=== PATIENT | female | born 1955 | race Hispanic/Latino ===

== ENCOUNTER 2017-05-19 08:37 | Emergency (ER) | payer OTHER ==
[~2017-05-19] VITALS: Ht 162.6 cm; Wt 154.2 kg
[~2017-05-19 08:37] MED LIST: ASPIR 8181 MG PO; ATENOLOL50 MG PO; CARAFATE1 GM PO; EFFER-K 10 MEQ10 MEQ PO; FLEXERIL10 MG PO; FUROSEMIDE40 MG PO; HYDROCHLOROTHIA25 MG; IPRATROPIU0.2 MG/1 M INH; NEXIUM40 MG PO; ULTRAM50 MG PO; XOPENEX0.63 MG/3 INH
[2017-05-19 09:49] LABS: BASOPHILS % 0.7 % (0.0-1.0); EOSINOPHILS # (AUTO) 0.1 (0.0-0.4); EOSINOPHILS % 1.4 % (0.0-6.0); HEMATOCRIT 41.4 % (34.2-44.1); HEMOGLOBIN 13.1 g/dL (12.0-16.0); LYMPHOCYTES # (AUTO) 1.1 (1.0-3.2); LYMPHOCYTES % 25.7 % (18.0-39.1); MEAN CORPUSCULAR HGB CONC 31.6 g/dL (31-35); MEAN CORPUSCULAR VOLUME 85.4 fL (81-99); MONOCYTES # (AUTO) 0.3 (0.2-0.8); MONOCYTES % 7.5 % (4.4-11.3); NEUTROPHILS # (AUTO) 2.8 (2.1-6.9); NEUTROPHILS % 63.6 % (38.7-80.0); PLATELET COUNT 201 x10e3/uL (140-360); RED BLOOD COUNT 4.85 x10e6/uL (3.6-5.1)
--- NOTE | 2017-05-19 09:59 | Diagnostic Imaging Report ---
Examination: CT BRAIN WITHOUT CONTRAST History:Dizziness. Headache. Pain behind the right ear. Comparison studies:None Technique: Axial images were obtained from the skull base to the vertex. Coronal and sagittal images reconstructed from the axial data. Intravenous contrast: None Findings: Scalp: No abnormalities. Bones: No fractures, blastic or lytic lesions. Brain sulci: Appropriate for age. Ventricles: Normal in size and configuration. No hydrocephalus. Extra-axial space: No abnormalities. Parenchyma: No abnormal densities. No masses, hemorrhage, or acute or chronic cortical based vascular insults.. Sellar/suprasellar region: No abnormalities. Craniocervical junction: Patent foramen magnum. No Chiari one malformation. Incidental findings: None. Impression: No intracranial abnormalities. Signed by: Dr. Rhina Villarreal M.D. on 05/19/2017 9:55 AM
[2017-05-19 10:05] LABS: INR 1.03; PROTHROMBIN TIME 12.7 seconds (11.9-14.5)
[2017-05-19 10:06] LABS: PARTIAL THROMBOPLASTIN TIME 31.1 seconds (23.8-35.5)
[2017-05-19 10:13] LABS: BILIRUBIN,URINE NEGATIVE (NEGATIVE); KETONES,URINE NEGATIVE (NEGATIVE); LEUKOCYTE ESTERASE ,URINE NEGATIVE (NEGATIVE); NITRITE,URINE NEGATIVE (NEGATIVE); PROTEIN,URINE DIPSTICK NEGATIVE (NEGATIVE); URINE UROBILINOGEN 0.2 mg/dL (0.2 - 1)
[2017-05-19 10:15] LABS: ALANINE AMINOTRANSFERASE 17 IU/L (0-55); ALBUMIN 3.7 g/dL (3.5-5.0); ALBUMIN/GLOBULIN RATIO 1.1 (0.8-2.0); ALKALINE PHOSPHATASE 94 IU/L (40-150); ANION GAP 10.8 mmol/L (8-16); BLOOD UREA NITROGEN 15 mg/dL (7-26); BUN/CREATININE RATIO 21 (6-25); CALCIUM 8.9 mg/dL (8.4-10.2); CARBON DIOXIDE 26 mmol/L (22-29); CHLORIDE 108 mmol/L (98-107); CREATINE KINASE 69 IU/L (29-168); EST GLOMERULAR FILTRATION RATE > 60 ML/MIN (60-); GLUCOSE 148 mg/dL (74-118); POTASSIUM 3.8 mmol/L (3.5-5.1); SODIUM 141 mmol/L (136-145)
--- NOTE | 2017-05-19 10:17 | Diagnostic Imaging Report ---
PROCEDURE: CHEST SINGLE (PORTABLE) COMPARISON: None. INDICATIONS: HEADACHE, SHORTNESS OF BREATH FINDINGS: LUNGS: No consolidations or edema. PLEURA: No effusions or pneumothorax. HEART \T\ MEDIASTINUM: The heart is within normal size-limits. BONES \T\ SOFT TISSUES: No acute findings. CONCLUSION: No acute thoracic abnormality. Richard Amin D.O. Dictated by: Richard Amin D.O. on 05/19/2017 at 10:17 Electronically approved by: Richard Amin D.O. on 05/19/2017 at 10:17
[2017-05-19 10:22] LABS: CLARITY,URINE CLEAR (CLEAR); COLOR,URINE YELLOW (YELLOW)
[2017-05-19 10:33] LABS: BACTERIA,URINE FEW /HPF; EPITHELIAL CELLS,URINE MODERATE /LPF; TRANSITIONAL EPI CELLS,URINE RARE
[2017-05-19] MEDS ORDERED: CLONIDINE HCL 0.1 MG TAB PO ONE (11:45)
[2017-05-19 12:13] VITALS: BP 155/88
== END 2017-05-19 12:40 | disposition home or self-care (01) ==
LOC: ER 08:37
DX: G44.209 Tension-type headache, unspecified, not intractable (principal); I10 Essential (primary) hypertension; I51.9 Heart disease, unspecified; M79.7 Fibromyalgia
CPT/HCPCS: 36415; 70450; 71045; 80053; 81001; 82550; 82553; 84484; 85025; 85610; 85730; 93005; 99284

== ENCOUNTER → 2019-05-22 | Outpatient (CLI) | payer MEDICARE ==
[~2019-05-22] MED LIST changes: +AMLODIPINE BESYL5 MG PO; +JANUVIA100 MG PO; +MELOXICAM7.5 MG PO; +PHENTERMINE H37.5 M1 PO; +PROAIR HFA INH8.5 GM INH
--- NOTE | 2019-05-22 14:52 | Diagnostic Imaging Report ---
EXAM: BONE MINERAL DENSITY HISTORY: Screening COMPARISON: None DISCUSSION: Evaluation of the left hip and lumbar spine was performed utilizing DEXA Hologic bone densitometer. The study is technically adequate. The patient's fracture risk is compared to an age-matched control. The patient denies prior surgery/fracture of the spine, hips or forearm. Left hip femoral neck bone mineral density: 0.934 g/cm2, T-score is 0.5, Z-score is 2. Left hip total bone mineral density: 1.109 g/cm2, T-score is 1.1, Z-score is 2.3. Lumbar spine total bone mineral density: 1.107 gm/cm2, T-score is 0.5, Z-score is 2.4. Impression: Bone mineralization by WHO Classification is normal, the fracture risk is not increased. Signed by: Nader Corey MD on 05/22/2019 2:50 PM
== END ==
LOC: MAMMO 08:47
PROVIDERS: ATTEND Family Medicine
DX: Z12.31 Encounter for screening mammogram for malignant neoplasm of breast (principal); Z78.0 Asymptomatic menopausal state
CPT/HCPCS: 77067; 77080

== ENCOUNTER → 2020-01-02 | Outpatient (CLI) | payer MEDICARE ==
--- NOTE | 2020-01-04 16:03 | Diagnostic Imaging Report ---
#[id number] - USBRELIMRT ULTRASOUND OF THE RIGHT BREAST : 01/02/2020 Comparison is made to exams dated: 01/02/2020 mammogram and 05/22/2019 mammogram - [facility]. Color flow and real-time ultrasound were performed on the right breast. Mills scale images of the real-time examination were reviewed. No abnormalities were seen sonographically in the right breast. IMPRESSION: NEGATIVE There is no sonographic evidence of malignancy. A 1 year screening mammogram is recommended. ZULY giang/guerline:01/04/2020 09:36:20 Biology Intern: Nate Cadena [facility], [facility] letter sent: Normal Exam Ultrasound BI-RADS: 1 Negative
--- NOTE | 2020-01-04 16:03 | Diagnostic Imaging Report ---
#[id number] - MGDXRT #UNILATERAL RIGHT DIGITAL DIAGNOSTIC MAMMOGRAM WITH SPOT COMPRESSION: 01/02/2020 Comparison is made to exams dated: 05/22/2019 mammogram - [facility] and 05/08/2013 mammogram - [facility] There are scattered fibroglandular elements in the right breast. There is an 8 mm oval equal density mass with a circumscribed margin in the right breast at 11 o'clock anterior depth. This is decreased in size. No other significant masses or calcifications are seen in the breast. IMPRESSION: INCOMPLETE: NEEDS ADDITIONAL IMAGING EVALUATION The 8 mm oval equal density mass in the right breast is indeterminate but has decreased in size compared to the prior mammogram of 05/22/2019. Ultrasound evaluation will be performed during the same visit. A 1 year screening mammogram is recommended. ZULY RONDON M.D. kw/:01/04/2020 09:35:57 Supervisor [employer]: Noelle INIGUEZ(Tc)(M), [facility] Mammogram BI-RADS: 0 Indeterminate
== END ==
LOC: MAMMO 09:43
PROVIDERS: ATTEND Family Medicine
DX: R92.8 Other abnormal and inconclusive findings on diagnostic imaging of breast (principal)

== ENCOUNTER → 2020-01-16 | Outpatient (CLI) | payer MEDICARE ==
--- NOTE | 2020-01-16 15:33 | Diagnostic Imaging Report ---
CT of the abdomen and pelvis, without contrast, 01/16/2020. History: Left flank pain. Comparison: None available. Technique: Multidetector CT scanning of the abdomen and pelvis was performed from the level of the lung bases to the inferior pubic rami without intravenous or oral contrast. Coronal and sagittal multiplanar reformations were obtained. RADIATION DOSE: Total DLP: 738 mGy*cm Dose modulation, iterative reconstruction, and/or weight based adjustment of the mA/kV was utilized to reduce the radiation dose to as low as reasonably achievable. Discussion: Examination is limited without contrast. Lung bases: Calcified granulomata are present bilaterally. Linear scarring is present in the left lower lobe. Abdomen: The liver is enlarged measuring over 20 cm in length, with diffuse low-density. A 2.0 x 1.5 cm left adrenal nodule is present measuring 8 Hounsfield units in density. The biliary tree, spleen, pancreas, right adrenal, and kidneys are unremarkable. There is no evidence of nephrolithiasis, hydronephrosis, or ureteral dilatation. The gallbladder is absent. The abdominal aorta is within normal limits. A gastric lap band is present near the GE junction. There is no bowel dilatation. There is no evidence of adenopathy or free fluid. Pelvis: Evaluation is limited due to patient body habitus. The bladder is unremarkable. The uterus appears to be present, but this air is difficult to visualize due to streak artifact. There is no evidence of free fluid or adenopathy. Bones and soft tissues: Degenerative changes are present throughout the lumbar spine without evidence of lytic or sclerotic lesion. IMPRESSION: 1. Hepatomegaly with diffuse fatty infiltration of the liver. 2. No evidence of nephrolithiasis or hydronephrosis. 3. Low-density left adrenal nodule consistent with an adenoma. 4. Gastric lap band is present in the typical position. Signed by: Juanjo Horvath on 01/16/2020 3:30 PM
== END ==
LOC: CT 14:35
PROVIDERS: ATTEND Family Medicine
DX: R10.9 Unspecified abdominal pain (principal)
CPT/HCPCS: 74176

== ENCOUNTER → 2021-01-15 | Outpatient (CLI) | payer MEDICARE ==
[~2021-01-15] MED LIST changes: +REGADENOSON 0.4 MG/5 ML SYR IV ONE
== END ==
LOC: NM 09:08
PROVIDERS: ATTEND Internal Medicine Cardiovascular Disease
DX: R07.9 Chest pain, unspecified (principal)
CPT/HCPCS: 78452; 93017; A9502; J2785

== ENCOUNTER → 2021-01-15 | Outpatient (CLI) | payer MEDICARE ==
[~2021-01-15] MED LIST changes: -REGADENOSON 0.4 MG/5 ML SYR IV ONE
== END ==
LOC: RAD 09:25
PROVIDERS: ATTEND Internal Medicine
DX: J96.91 Respiratory failure, unspecified with hypoxia (principal)
CPT/HCPCS: 71046